=== PATIENT | female | born 1960 | race Caucasian/White ===

== ENCOUNTER 2016-10-02 15:22 | Emergency (ER) | payer OTHER ==
[~2016-10-02] VITALS: Wt 102.0 kg
[~2016-10-02 15:22] MED LIST: ADAL20KI; LISI-313; PRED-248
[2016-10-02] MEDS ORDERED: ONDANSETRON (ODT) 4 MG TAB ODT STA (15:37)
[2016-10-02] MEDS ORDERED: HYDROmorphONE 2 MG/ML SYG IM STA (15:41)
[2016-10-02] MEDS ORDERED: NICARDipine HCL 30 MG CAPSULE PO ONE (16:00)
[2016-10-02] MEDS ORDERED: HYDROCODONE/APAP (10/325) TAB PO ONE (16:00)
--- NOTE | 2016-10-02 16:25 | RADRPT ---
PROCEDURE: XR right shoulder. CLINICAL INDICATION: right shoulder pain TECHNIQUE: AP, Internal and external rotation views of the shoulder were performed. COMPARISON: None. FINDINGS: There is normal osseous mineralization and alignment. No acute fracture or osseous lesion is identified. Mild degenerative changes are seen at the acromioclavicular joint. The soft tissues are unremarkable. IMPRESSION: 1. Study somewhat limited by the patient's large body habitus. 2. No acute abnormalities are identified. 3. Mild degenerative changes are seen at the acromioclavicular joint. RPTAT:AAJJ Physician Gabriel Date Time Electronically viewed and signed by Physician Gabriel on 10/02/2016 16:25 /
[2016-10-02] MEDS ORDERED: HYDR-902 PO (16:40)
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
[2016-10-02 16:58] VITALS: BP 138/76; PULSE 86; RESP 16; TEMP 98.1
== END 2016-10-02 17:03 | disposition home or self-care (01) ==
LOC: E/R 15:22
DX: I10 Essential (primary) hypertension (principal); M19.90 Unspecified osteoarthritis, unspecified site
CPT/HCPCS: 73030; 96372; 99284; J1170

== ENCOUNTER 2016-10-07 07:50 | Day surgery (SDC) | payer OTHER ==
[2016-10-07] VITALS (11 sets, daily range): BP systolic 90–144; BP diastolic 48–80; PULSE 52–60; RESP 14–24; Ht 160 cm; Wt 100.4 kg
[~2016-10-07] VITALS: Ht 160 cm; Wt 100.4 kg
[~2016-10-07 07:50] MED LIST changes: +HYDR-902 PO
[2016-10-07] MEDS ORDERED: DIPHENHYDRAMINE 50 MG INJ IV PRN (08:30)
[2016-10-07] MEDS ORDERED: FENTAnyl 50 MCG/ML VIAL IV PRN (08:30)
[2016-10-07] MEDS ORDERED: OXYCODONE/ACETAMINOPHEN (5/325) TAB PO PRN ×2 (08:30)
[2016-10-07] MEDS ORDERED: ONDANSETRON 4 MG INJ IV PRN (08:30)
[2016-10-07] MEDS ORDERED: PROCHLORPERAZINE 10 MG INJ IV PRN (08:30)
[2016-10-07] MEDS ORDERED: MEPERIDINE 25 MG INJ IV PRN (08:30)
[2016-10-07] MEDS ORDERED: TELM80TA4 PO (08:59)
--- NOTE | 2016-10-07 09:20 | HPN ---
Date/Time of Note Date/Time of Note DATE: 10/07/16 TIME: 09:19 Interval H&P Admission Note Pt. seen H&P reviewed: No system changes JONELLE ALICEA MD Oct 07, 2016 09:19
[2016-10-07] MEDS ORDERED: STRONG IODINE 14 ML SOLUTION TOP ONE (09:44)
[2016-10-07] MEDS ORDERED: MIDAZOLAM 1 MG/ML 2 ML INJ ONE (09:51)
[2016-10-07] MEDS ORDERED: FENTAnyl 50 MCG/ML VIAL ONE (09:51)
[2016-10-07] MEDS ORDERED: ONDANSETRON 4 MG INJ ONE (09:53)
[2016-10-07] MEDS ORDERED: KETOROLAC 30 MG INJ ONE (09:53)
[2016-10-07] MEDS ORDERED: METOCLOPRAMIDE 10 MG INJ ONE (09:53)
[2016-10-07] MEDS ORDERED: PROPOFOL 20 ML ONE (09:55)
[2016-10-07] MEDS ORDERED: LIDOCAINE 2% (SDV) 5 ML INJ ONE (09:55)
--- NOTE | 2016-10-07 10:20 | PD.PPDC ---
JOINERY SETTER OUT Discharge Instruction Diagnosis Final Diagnosis: cervical dislocation s/p multiple attempt ed pap smear failed pap smear Condition Patient Condition: Stable Diet Diet: Resume Regular Diet Activity/Restrictions Activity: Normal Activity Follow-up Follow-up with Physician: 2, Week/Weeks JONELLE ALICEA MD Oct 07, 2016 10:20
--- NOTE | 2016-10-07 10:23 | PD.PPDC ---
MANAGER STAR Discharge Instruction Diagnosis Final Diagnosis: cervical malposition failed pap smear Condition Patient Condition: Stable Diet Diet: Resume Regular Diet Activity/Restrictions Activity: Normal Activity Follow-up Follow-up with Physician: 2, Week/Weeks JONELLE ALICEA MD Oct 07, 2016 10:23
--- NOTE | 2016-10-07 10:27 | OPR ---
Date/Time of Note Date/Time of Note DATE: 10/07/16 TIME: 10:23 Operative Report Preoperative Diagnosis failed to obtain pap smear at office Postoperative Diagnosis malposition of cervix failed to obtain pap smear after numerous attempt with different instrument Operation/Procedure Performed attempt pap smear Surgeon: JONELLE ALICEA MD Anesthesia Type: other (sedation) Estimated Blood Loss: none Transfusion Required: no Specimen: none Grafts/Implants: none Complications: no JONELLE ALICEA MD Oct 07, 2016 10:27
--- NOTE | 2016-10-07 11:26 | OPR ---
DATE OF OPERATION: 10/07/2016 PREOPERATIVE DIAGNOSIS: Cervical malposition, status post attempted Pap smear at office. POSTOPERATIVE DIAGNOSIS: Cervical malposition, status post attempted Pap smear at office. Unable to obtain the Pap smear due to the position of cervix in numerous attempts with multiple different instrumentation. OPERATIVE PROCEDURE: Multiple attempts Pap smear of cervix. ANESTHESIA: Sedation. For details refer to the anesthesiologist's note. SURGEON: Sybil Dockery. ESTIMATED BLOOD LOSS: None. OPERATIVE PROCEDURE: Under proper sedation, patient was in the lithotomy position. Weighted speculum was introduced into the vaginal cavity, which was not able to reach the cervix. This was replaced by a weighted Jovani anteriorly and posteriorly with numerous attempts and even rectocele was pressed with the ring forceps and then pulled out. Still unable to reach the cervix. On palpation, it was palpated. So the location of the cervix is that it is but yet in order to do the cervix with the retractor in accounting assistant's hands and my hands, still unable to locate it. With numerous attempts and numerous instrumentation, even tried by bivalvular speculum, weighted speculum and Jovani retractor, was not able to identify the cervix in order to do the Pap smear. After numerous attempts, I decided not to do it, because even if we were able to do it, a colposcopy is impossible to have a further evaluation and decision was made for no further attempts. The instrument was removed. At this point. Sponge count taken, which was correct. No specimen. Patient sent to recovery room in stable condition. Dictated By: Debra Dockery MD /pastora/viral /Document#: [id number]
== END 2016-10-07 12:05 | disposition home or self-care (01) ==
LOC: SDS 07:50
PROVIDERS: ATTEND Obstetrics & Gynecology
DX: N85.4 Malposition of uterus (principal); E11.9 Type 2 diabetes mellitus without complications; I10 Essential (primary) hypertension; E66.01 Morbid (severe) obesity due to excess calories; Z68.39 Body mass index [BMI] 39.0-39.9, adult
CPT/HCPCS: 82962; 84703; J1885; J2250; J2405; J2765; J3010; Z7512; Z7610

== ENCOUNTER 2016-11-09 12:22 | Emergency (ER) | payer OTHER ==
[~2016-11-09] VITALS: Wt 98.5 kg
[~2016-11-09 12:22] MED LIST changes: -ADAL20KI; -HYDR-902 PO; -LISI-313; -PRED-248; +TELM80TA4 PO
[2016-11-09] MEDS ORDERED: morphine 4 MG/ML VIAL IV STA (14:50)
[2016-11-09] MEDS ORDERED: ONDANSETRON 4 MG INJ IV STA (14:50)
[2016-11-09 15:21] LABS: BASOPHILS % 0.2 % (0.0-2.0); EOSINOPHILS # 0.2 10^3/ul (0.0-0.5); EOSINOPHILS % 1.5 % (0.0-7.0); HEMATOCRIT 42.6 % (37.0-47.0); HEMOGLOBIN 13.5 g/dl (12.0-16.0); LYMPHOCYTES # 2.8 10^3/ul (0.8-2.9); LYMPHOCYTES % 22.4 % (15.0-51.0); MEAN CORPUSCULAR HEMOGLOBIN 26.7 pg (29.0-33.0); MEAN CORPUSCULAR HGB CONC 31.7 g/dl (32.0-37.0); MEAN CORPUSCULAR VOLUME 84.4 fl (82.0-101.0); MEAN PLATELET VOLUME 9.6 fl (7.4-10.4); MONOCYTE # 1.2 10^3/ul (0.3-0.9); MONOCYTES % 9.3 % (0.0-11.0); NEUTROPHIL # 8.3 10^3/ul (1.6-7.5); NEUTROPHILS % 66.3 % (39.0-77.0); PLATELET COUNT 279 10^3/UL (140-415); RED BLOOD COUNT 5.05 10^6/ul (4.20-5.40); RED CELL DISTRIBUTION WIDTH 13.4 % (11.5-14.5); WHITE BLOOD COUNT 12.5 10^3/ul (4.8-10.8)
[2016-11-09 15:40] LABS: ALANINE AMINOTRANSFERASE 74 IU/L (13-69); ALBUMIN/GLOBULIN RATIO 1.14; ALKALINE PHOSPHATASE 74 IU/L (42-121); ANION GAP 12 (8-16); ASPARTATE AMINO TRANSFERASE 40 IU/L (15-46); BILIRUBIN,INDIRECT 0.4 mg/dl (0-1.1); BILIRUBIN,TOTAL 0.4 mg/dl (0.2-1.3); BLOOD UREA NITROGEN 15 mg/dl (7-20); CALCIUM 8.9 mg/dl (8.4-10.2); CARBON DIOXIDE 30 mmol/L (21-31); CHLORIDE 98 mmol/L (97-110); CREATININE 0.61 mg/dl (0.44-1.00); GLUCOSE 169 mg/dl (70-220); POTASSIUM 4.2 mmol/L (3.5-5.1); SODIUM 136 mmol/L (135-144); TOTAL PROTEIN 7.5 g/dl (6.1-8.1)
[2016-11-09 15:53] LABS: TROPONIN-I < 0.012 ng/ml (0.00-0.12)
[2016-11-09] MEDS ORDERED: HYDR-902 PO (16:19)
[2016-11-09] MEDS ORDERED: ONDA4TAB14 PO (16:19)
[2016-11-09] MEDS ORDERED: PANT40TA3 PO (16:19)
--- NOTE | 2016-11-09 16:21 | ERD ---
ER Documentation Chief Complaint Date/Time DATE: 11/09/16 TIME: 16:21 Chief Complaint ABD PAIN X2 DAYS, NO N/V/D HPI Patient is a 56-year-old female with hypertension and diabetes who presents with abdominal pain. The patient had midepigastric abdominal pain which started 2 days ago. The pain is been constant and crampy. Patient tried tramadol. She denies fevers. She says that her primary doctor is Dr. Heck. Upon review of old medical records this is the patient's fifth visit to the ER since 2007. ROS All systems reviewed and are negative except as per history of present illness. Medications Home Meds Active Scripts Ondansetron (Ondansetron Odt) 4 Mg Tab.rapdis, 4 MG PO Q6H Y for NAUSEA AND/OR VOMITING, #10 TAB Prov:JAIME FOY MD 11/09/16 Hydrocodone/Acetaminophen ([place] 10-325 Tablet) 1 Each Tablet, 1 TAB PO Q6H Y for PAIN, #7 TAB Prov:JAIME FOY MD 11/09/16 Pantoprazole* (Protonix*) 40 Mg Tablet.dr, 40 MG PO DAILY, #20 TAB Prov:JAIME FOY MD 11/09/16 Reported Medications Telmisartan (Telmisartan) 80 Mg Tablet, 80 MG PO DAILY, TAB 10/07/16 Allergies Allergies: Coded Allergies: No Known Allergy (Verified , 10/07/16) PMhx/Soc History of Surgery: Yes (CS X4 1984,1985,1986,1993, L WRIS SX 2003, R WRIST SX 2005) Anesthesia Reaction: No Hx Neurological Disorder: No Hx Respiratory Disorders: No Hx Cardiac Disorders: No Hx Psychiatric Problems: No Hx Miscellaneous Medical Probl: No Hx Alcohol Use: No Hx Substance Use: No Hx Tobacco Use: No Smoking Status: Never smoker FmHx Family History: No diabetes Physical Exam Vitals Vital Signs Date Time Temp Pulse Resp B/P Pulse Ox O2 Delivery O2 Flow Rate FiO2 11/09/16 15:30 98.0 71 18 134/66 99 Room Air 11/09/16 12:24 97.6 73 17 222/103 98 Physical Exam Const: Moderate distress secondary to pain Head: Atraumatic Eyes: Normal Conjunctiva ENT: Normal External Ears, Nose and Mouth. Neck: Full range of motion..~ No meningismus. Resp: Clear to auscultation bilaterally Cardio: Regular rate and rhythm, no murmurs Abd: Soft, Epigastric tenderness to palpation without rebound or guarding Skin: No petechiae or rashes Back: No midline or flank tenderness Ext: No cyanosis, or edema Neur: Awake and alert Psych: Normal Mood and Affect Result Diagram: 11/09/16 1510 11/09/16 1510 Results 24 hrs Laboratory Tests Test 11/09/16 15:10 White Blood Count 12.510^3/ul Red Blood Count 5.0510^6/ul Hemoglobin 13.5g/dl Hematocrit 42.6% Mean Corpuscular Volume 84.4fl Mean Corpuscular Hemoglobin 26.7pg Mean Corpuscular Hemoglobin Concent 31.7g/dl Red Cell Distribution Width 13.4% Platelet Count 52314^3/UL Mean Platelet Volume 9.6fl Neutrophils % 66.3% Lymphocytes % 22.4% Monocytes % 9.3% Eosinophils % 1.5% Basophils % 0.2% Nucleated Red Blood Cells % 0.0/100WBC Neutrophils # 8.310^3/ul Lymphocytes # 2.810^3/ul Monocytes # 1.210^3/ul Eosinophils # 0.210^3/ul Basophils # 0.010^3/ul Nucleated Red Blood Cells # 0.010^3/ul Sodium Level 136mmol/L Potassium Level 4.2mmol/L Chloride Level 98mmol/L Carbon Dioxide Level 30mmol/L Anion Gap 12 Blood Urea Nitrogen 15mg/dl Creatinine 0.61mg/dl Glucose Level 169mg/dl Calcium Level 8.9mg/dl Total Bilirubin 0.4mg/dl Direct Bilirubin 0.00mg/dl Indirect Bilirubin 0.4mg/dl Aspartate Amino Transf (AST/SGOT) 40IU/L Alanine Aminotransferase (ALT/SGPT) 74IU/L Alkaline Phosphatase 74IU/L Troponin I < 0.012ng/ml Total Protein 7.5g/dl Albumin 4.0g/dl Globulin 3.50g/dl Albumin/Globulin Ratio 1.14 Lipase 52U/L Current Medications Medications (Trade) Dose Ordered Sig/Kylee Route PRN Reason Start Time Stop Time Status Last Admin Dose Admin Morphine Sulfate (morphine) 4 mg ONCE STAT IV 11/09/16 14:50 11/09/16 14:51 DC 11/09/16 15:20 Ondansetron HCl (Zofran Inj) 4 mg ONCE STAT IV 11/09/16 14:50 11/09/16 14:51 DC 11/09/16 15:20 Procedures/MDM EKG read by me: Rate/Rhythm: Regular rate and rhythm at a rate of 63 Intervals: Normal Impression: No evidence of ischemia or arrhythmia Patient is a 56-year-old female who presents with midepigastric abdominal pain. EKG shows no signs of ischemia and troponin is negative. Her laboratory studies are basically normal including normal LFTs and lipase. At this point I doubt cholecystitis, pancreatitis, appendicitis, or bowel obstruction. The patient has had her gallbladder removed in the past. She was given morphine and Zofran for symptomatically relief. She will be given a prescription for Protonix, Nellys[place], and Zofran. She can return for any worsening symptoms. She should follow-up with her primary doctor within 24 hours for reevaluation. The patient understands the plan is okay for discharge. Departure Diagnosis: Primary Impression: Abdominal pain Abdominal location: epigastric Qualified Code: R10.13 - Epigastric pain Condition: Fair Patient Instructions: Abdominal Pain Referrals: PAMELA HECK (PCP) Additional Instructions: Call your primary care doctor TOMORROW for an appointment during the next 1-2 days.See the doctor sooner or return here if your condition worsens before your appointment time. JAIME FOY MD Nov 09, 2016 16:21
[2016-11-09 16:32] VITALS: BP 142/78; PULSE 67; RESP 18; TEMP 98.2
[2016-11-09 16:56] LABS: ADD UMIC YES; UR ASCORBIC ACID NEGATIVE (NEGATIVE); UR BILIRUBIN (Dip) NEGATIVE (NEGATIVE); UR BLOOD (Dip) NEGATIVE (NEGATIVE); UR CLARITY SLIGHTLY CLOUDY (CLEAR); UR COLOR YELLOW (YELLOW); UR GLUCOSE (Dip) NEGATIVE (NEGATIVE); UR KETONES (Dip) NEGATIVE (NEGATIVE); UR LEUKOCYTE ESTERASE (Dip) NEGATIVE Leu/ul (NEGATIVE); UR MUCUS FEW /HPF (NONE SEEN); UR NITRITE (Dip) NEGATIVE (NEGATIVE); UR RBC 1 /HPF (0-5); UR SPECIFIC GRAVITY (Dip) 1.021 (1.003-1.030); UR TOTAL PROTEIN (Dip) 1+ mg/dl (NEGATIVE); UR UROBILINOGEN (Dip) 1+ mg/dL (NEGATIVE)
== END 2016-11-09 16:33 | disposition home or self-care (01) ==
LOC: E/R 12:22
DX: R10.13 Epigastric pain (principal); E11.9 Type 2 diabetes mellitus without complications; I10 Essential (primary) hypertension
CPT/HCPCS: 36415; 80053; 81001; 83690; 84484; 85025; 93005; 96374; 96375; 99284; J2270; J2405

== ENCOUNTER 2017-06-18 12:44 | Emergency (ER) | END 2017-06-18 15:21 | disposition home or self-care (01) ==

== ENCOUNTER 2017-12-16 12:56 | Emergency (ER) | END 2017-12-16 16:24 | disposition home or self-care (01) ==

== ENCOUNTER 2018-06-02 11:37 | Emergency (ER) | payer OTHER ==
[~2018-06-02] VITALS: Wt 90.0 kg
[~2018-06-02 11:37] MED LIST changes: +HYDR-3980 PO; +HYDR-4011 PO; +MECL12.574 PO; +ONDA4TAB14 PO; +PANT40TA3 PO; +PRED20TA PO; -TELM80TA4 PO; +TELM80TA7 PO; +TRAM50TA2 PO
[2018-06-02 11:38] VITALS: BP 149/79; PULSE 99; RESP 18
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
[2018-06-02] MEDS ORDERED: predniSONE 20 MG TAB PO ONE (13:00)
[2018-06-02] MEDS ORDERED: PRED20TA PO (13:11)
[2018-06-02] MEDS ORDERED: TR1B60 TOP (13:11)
[2018-06-02] MEDS ORDERED: BEN50 PO (13:11)
== END 2018-06-02 13:22 | disposition home or self-care (01) ==
LOC: FTE 11:37
DX: S93.401A Sprain of unspecified ligament of right ankle, initial encounter (principal); I10 Essential (primary) hypertension; L23.9 Allergic contact dermatitis, unspecified cause; X50.1XXA Overexertion from prolonged static or awkward postures, initial encounter; Y92.9 Unspecified place or not applicable
CPT/HCPCS: 73610; 99283; J7512